=== PATIENT | male | born 1960 | race Caucasian/White ===

== ENCOUNTER → 2018-10-20 | Outpatient (CLI) | payer OTHER ==
--- NOTE | 2018-10-20 15:05 | NM ---
EXAMINATION TYPE: NM hepatobiliary w EF DATE OF EXAM: 10/20/2018 COMPARISON: NONE HISTORY: Right upper quadrant TECHNIQUE: After the intravenous administration of 5.14 mCi Tc 99m Mebrofenin hepatobiliary scintigra phy is performed. Immediate images post injection. FINDINGS: There is satisfactory initial accumulation of tracer by the liver. The gallbladder is visualized wit hin 16 minutes. The small bowel activity is noted within 38 minutes. At one hour 8 ounces of oral e nsure plus is given to mimic CCK and gallbladder ejection fraction is calculated at 62 %, in the norm al range. Therefore there is no scintigraphic evidence of cystic or common bile duct obstruction to suggest acute cholecystitis or gallbladder dyskinesia. IMPRESSION: No scintigraphic evidence of acute or chronic cholecystitis. Gallbladder ejection fractio n is within normal limits. No evidence of biliary dyskinesia.
== END | disposition home or self-care (01) ==
LOC: RADNMMAIN 12:44
PROVIDERS: ATTEND Family Medicine
DX: R10.11 Right upper quadrant pain (principal)
CPT/HCPCS: 78226; A9537

== ENCOUNTER → 2018-11-08 | Outpatient (CLI) | payer OTHER ==
--- NOTE | 2018-11-08 12:46 | CT ---
EXAMINATION TYPE: CT lumbar spine wo con DATE OF EXAM: 11/08/2018 COMPARISON: None HISTORY: Low back pain x1 month. CT DLP: [address] of the lumbar spine was performed. Bone and soft tissue window settings are submitted as well as coronal and sagittal reconstructions. L1-L2: Moderate degenerative disc space narrowing. Mild posterior disc bulge. No herniation protrusio n or central stenosis. Foramina are patent bilaterally. L2-L3: Moderate degenerative disc space narrowing. Mild posterior disc bulge. No herniation protrusio n or central stenosis. Foramina are patent bilaterally. L3-L4: Moderate degenerative disc space narrowing. Mild posterior disc bulge. No herniation protrusio n or central stenosis. Foramina are patent bilaterally. L4-L5: Moderate degenerative disc space narrowing. Posterior disc bulging with effacement ventral the liliya sac and mild bilateral lateral recess stenosis. Foramina are patent bilaterally. L5-S1: Mild degenerative narrowing again noted. Left paracentral disc bulge or small herniation resul ts in left lateral recess stenosis and mild left foraminal encroachment. No central stenosis identifi ed. No paraspinal masses are identified. Lumbar segments are free if fracture. Abdominal aortic aneurysm measuring 3.2 cm AP dimension. Inferior Schmorl node formation at the T11 and T12. IMPRESSION: 1. Multilevel degenerative disc disease. 2. Left paracentral disc bulge or mild herniation at L5-S1 resulting in left lateral recess stenosis. 3. Bilateral lateral recess stenosis noted at L4-5. 4. Mild intra-abdominal aortic aneurysm.
== END ==
LOC: RADCTMAIN 12:11
PROVIDERS: ATTEND Family Medicine
DX: M54.5 Low back pain (principal); M51.36 Other intervertebral disc degeneration, lumbar region; M51.37 Other intervertebral disc degeneration, lumbosacral region; M48.061 Spinal stenosis, lumbar region without neurogenic claudication; I71.4 Abdominal aortic aneurysm, without rupture
CPT/HCPCS: 72131